=== PATIENT | male | born 2000 | race Hispanic/Latino ===

== ENCOUNTER 2018-06-02 08:02 | Emergency (ER) | payer OTHER, SELFPAY | END 2018-06-02 10:09 | disposition home or self-care (01) | LOC: ERS 08:02 | DX: I10 Essential (primary) hypertension (principal); E11.9 Type 2 diabetes mellitus without complications; Z79.84 Long term (current) use of oral hypoglycemic drugs | CPT/HCPCS: 99283 ==

== ENCOUNTER 2020-12-12 22:07 | Emergency (ER) | payer SELFPAY | END 2020-12-13 01:45 | disposition home or self-care (01) | LOC: ERS 22:07 | DX: I10 Essential (primary) hypertension (principal); E11.9 Type 2 diabetes mellitus without complications; Z79.84 Long term (current) use of oral hypoglycemic drugs; Z79.899 Other long term (current) drug therapy | CPT/HCPCS: 99281 ==